=== PATIENT | male | born 1990 | race Caucasian/White ===

== ENCOUNTER 2016-11-08 18:23 | Inpatient (IN) | payer MEDICAID, OTHER ==
[2016-11-08 18:32] VITALS: BMI 23.7
--- NOTE | 2016-11-08 19:31 | ED PDOC ---
Arrival/HPI - General Chief Complaint: Psychiatric Evaluation Time Seen by Provider: 11/08/16 18:26 Historian: Patient - History of Present Illness Narrative History of Present Illness (Text): 11/08/16 19:34 A 26 year old male, whose past medical history includes schizophrenia, presents to the emergency department complaining of hearing voices and depressed. Patient also reports right ankle pain and foot pain earlier today after " jumping on it funny" Patient denies any other complaints at this time. 11/08/16 22:43 Symptom Onset: Sudden Symptom Course: Unchanged Activities at Onset: Rest Context: Home Past Medical History - Provider Review Nursing Documentation Reviewed: Yes - Infectious Disease Hx of Infectious Diseases: None - Cardiac Hx Cardiac Disorders: No - Pulmonary Hx Respiratory Disorders: No - Neurological Hx Neurological Disorder: No - HEENT Hx HEENT Disorder: No - Renal Hx Renal Disorder: No - Endocrine/Metabolic Hx Endocrine Disorders: No - Hematological/Oncological Hx Blood Disorders: No - Integumentary Hx Dermatological Disorder: No - Musculoskeletal/Rheumatological Hx Musculoskeletal Disorders: No - Gastrointestinal Hx Gastrointestinal Disorders: No - Genitourinary/Gynecological Hx Genitourinary Disorders: No - Psychiatric Hx Psychophysiologic Disorder: Yes Hx Schizophrenia: Yes Hx Substance Use: Yes (marijuana) - Anesthesia Hx Anesthesia: No Family/Social History - Physician Review Nursing Documentation Reviewed: Yes Family/Social History: No Known Family HX Smoking Status: Heavy Smoker > 10 Cigarettes Daily Hx Alcohol Use: Yes Frequency of alcohol use: Daily Hx Substance Use: Yes (marijuana) Allergies/Home Meds Allergies/Adverse Reactions: Allergies cinnamon. gilmer,banana Adverse Reaction (Uncoded 11/09/16 08:26) SWELLING Home Medications: Home Meds Medication Instructions Recorded Confirmed Unobtainable 10/18/15 11/09/16 Review of Systems - Physician Review All systems were reviewed & negative as marked: Yes - Review of Systems Musculoskeletal: Other (R ankle pain) Psychiatric: Depression, Other (hearing voices) Physical Exam Vital Signs Reviewed: Yes Vital Signs Temp Pulse Resp BP Pulse Ox 11/09/16 07:44 97.9 F 82 17 112/54 L 97 11/09/16 06:05 61 18 119/72 98 11/09/16 02:37 98.7 F 66 18 120/77 98 11/08/16 20:55 98.8 F 11/08/16 20:18 74 20 139/71 100 Blood Pressure: Normal Pulse: Regular Respiratory Rate: Normal Appearance: Positive for: Well-Appearing, Non-Toxic, Comfortable Pain Distress: None Mental Status: Positive for: Alert and Oriented X 3 - Systems Exam Head: Present: Atraumatic, Normocephalic Pupils: Present: PERRL Extroacular Muscles: Present: EOMI Conjunctiva: Present: Normal Mouth: Present: Moist Mucous Membranes Neck: Present: Normal Range of Motion Respiratory/Chest: Present: Clear to Auscultation, Good Air Exchange. No: Respiratory Distress, Accessory Muscle Use Cardiovascular: Present: Regular Rate and Rhythm, Normal S1, S2. No: Murmurs Abdomen: Present: Normal Bowel Sounds. No: Tenderness, Distention, Peritoneal Signs Back: Present: Normal Inspection Upper Extremity: Present: Normal Inspection. No: Cyanosis, Edema Lower Extremity: Present: Tenderness (mild R foot), Swelling (mild R foot). No : Edema Neurological: Present: GCS=15, CN II-XII Intact, Speech Normal Skin: Present: Warm, Dry, Normal Color. No: Rashes Psychiatric: Present: Alert, Oriented x 3, Normal Concentration, Depressed Mood , Other (hearing voices) Medical Decision Making ED Course and Treatment: 11/08/16 19:28 Impression: A 26 year old male, hearing voices and depressed. Plan: -- EKG -- chest xray -- Radiology ankle right, foot right -- labs -- Urinalysis -- Reassess and disposition Prior Visits: Notes and results from previous visits were reviewed. Patient last reported to the emergency department on 10/18/15 for evaluation of depression. Patient was cleared for psych evaluation. Patient was seen in ER by Irene and discharged. Progress Notes: EKG: Ordered, reviewed, and independently interpreted the EKG. Rate : 82 BPM Rhythm : NSR Interpretation : No ST/T wave changes 11/08/16 22:43 cxrneg as read by me. medically cleared. pes recommends screener 11/09/16 12:30 pt endrosed to night team. pending [facility] [place] [place] eval, and vrad reading of imaging. - Lab Interpretations Lab Results: 11/08/16 20:00 11/08/16 20:00 Lab Results 11/08/16 20:00: Alcohol, Quantitative < 10 11/08/16 20:00: Salicylates < 1 L, Acetaminophen < 10.0 L 11/08/16 20:00: Sodium 138, Potassium 4.0, Chloride 101, Carbon Dioxide 27, Anion Gap 14, BUN 14, Creatinine 1.0, Est GFR ( Amer) > 60, Est GFR (Non- Af Amer) > 60, Random Glucose 87, Calcium 9.6, Total Bilirubin 0.6, AST 28, ALT 35, Alkaline Phosphatase 66, Total Protein 8.0, Albumin 4.5, Globulin 3.5, Albumin/Globulin Ratio 1.3 11/08/16 20:00: WBC 8.9 D, RBC 5.02, Hgb 14.7, Hct 44.3, MCV 88.2, MCH 29.3, MCHC 33.2, RDW 12.9, Plt Count 182, MPV 11.2 H, Gran % 55.8, Lymph % (Auto) 35.7 H, [place] % (Auto) 8.0 H, Eos % (Auto) 0.2 L, Baso % (Auto) 0.3, Gran # 4.94 , Lymph # 3.2, [place] # 0.7 H, Eos # 0.0, Baso # 0.03 11/08/16 19:45: Urine Opiates Screen Negative, Urine Methadone Screen Negative, Ur Barbiturates Screen Negative, Ur Phencyclidine Scrn Negative, Ur Amphetamines Screen Negative, U Benzodiazepines Scrn Negative, U Oth Cocaine Metabols Negative, U Cannabinoids Screen Positive H 11/08/16 19:45: Urine Color Yellow, Urine Appearance Clear, Urine pH 6.0, Ur Specific [place] 1.025, Urine Protein Trace H, Urine Glucose (UA) Negative, Urine Ketones Negative, Urine Blood Trace-intact H, Urine Nitrate Negative, Urine Bilirubin Negative, Urine Urobilinogen 1.0 H, Ur Leukocyte Esterase Negative, Urine RBC 1 - 3, Urine WBC 0 - 2, Ur Epithelial Cells 0 - 2 I have reviewed the lab results: Yes - RAD Interpretation Radiology Orders: 11/08/16 18:31 CHEST PORTABLE [RAD] Stat ANKLE RIGHT 3 VIEWS ROUTINE [RAD] Stat FOOT RIGHT 3 VIEWS ROUTINE [RAD] Stat - EKG Interpretation Interpreted by ED Physician: Yes Type: 12 lead EKG - Medication Orders Current Medication Orders: Benztropine Mesylate (Cogentin) 0.5 mg PO [facility] Nicotine (Nicoderm Cq) 1 patch TD DAILY CHELY Risperidone (Risperdal Tab) 1 mg PO [facility] CHELY PRN Reason: Protocol - Scribe Statement The provider has reviewed the documentation as recorded by the Jerilynibsantiago Oleary Provider Scribe Attestation: All medical record entries made by the Scribe were at my direction and personally dictated by me. I have reviewed the chart and agree that the record accurately reflects my personal performance of the history, physical exam, medical decision making, and the department course for this patient. I have also personally directed, reviewed, and agree with the discharge instructions and disposition. Disposition/Present on Arrival - Present on Arrival Any Indicators Present on Arrival: No History of DVT/PE: No History of Uncontrolled Diabetes: No Urinary Catheter: No History of Decub. Ulcer: No History Surgical Site Infection Following: None - Disposition Have Diagnosis and Disposition been Completed?: Yes Diagnosis: Schizophrenia, Foot injury Disposition: HOSPITALIZED Disposition Time: 11:00 Condition: STABLE
[2016-11-08 20:17] LABS: URINE APPEARANCE CLEAR (CLEAR); URINE BILIRUBIN NEGATIVE (NEGATIVE); URINE BLOOD TRACE-INTACT (NEGATIVE); URINE COLOR YELLOW (YELLOW); URINE GLUCOSE (UA) NEGATIVE (NEGATIVE); URINE KETONE NEGATIVE (NEGATIVE); URINE LEUKOCYTE ESTERASE NEGATIVE Leu/uL (NEGATIVE); URINE PROTEIN TRACE mg/dL (<30 mg/dL)
[2016-11-08 20:23] LABS: ADD MANUAL DIFF? NO
[2016-11-08 20:33] LABS: URINE EPITHELIAL CELLS 0 - 2 /hpf (0-5); URINE WBC 0 - 2 /hpf (0-6)
[2016-11-08 20:34] LABS: BASO # 0.03 K/mm3 (0.0-2.0); BASO % 0.3 % (0.0-3.0); EOS % 0.2 % (1.5-5.0); GRAN # 4.94 (1.4-6.5); GRAN % 55.8 % (50.0-68.0); HEMATOCRIT 44.3 % (42.0-52.0); LYMPH # 3.2 (1.2-3.4); LYMPH % 35.7 % (22.0-35.0); MEAN CELL VOLUME 88.2 fL (80.0-105.0); MEAN CORPUSCULAR HEMOGLOBIN 29.3 pg (25.0-35.0); MEAN CORPUSCULAR HGB CONC 33.2 g/dl (31.0-37.0); MEAN PLATELET VOLUME 11.2 fl (7.0-11.0); MONO # 0.7 (0.1-0.6); PLATELET COUNT 182 10^3/uL (120.0-450.0); RED CELL DISTRIBUTION WIDTH 12.9 % (11.5-14.5); WHITE BLOOD COUNT 8.9 10^3/ul (4.5-11.0)
[2016-11-08 20:48] LABS: ALB/GLOB RATIO 1.3 (1.1-1.8); ALKALINE PHOSPHATASE 66 U/L (38-133); ALT/SGPT 35 U/L (7-56); AST/SGOT 28 U/L (15-59); BILIRUBIN,TOTAL 0.6 mg/dL (0.2-1.3); BLOOD UREA NITROGEN 14 mg/dL (7-21); CALCIUM 9.6 mg/dL (8.4-10.5); CARBON DIOXIDE 27 mmol/L (21-33); CHLORIDE 101 mmol/L (98-107); GFR AFRICAN-AMERICAN > 60; GLUCOSE,RANDOM 87 mg/dL (70-110); SODIUM 138 mmol/L (132-148)
--- NOTE | 2016-11-08 23:59 | RAD ---
EXAM: XR Right Foot Complete, 3 or More Views CLINICAL HISTORY: 26 years old, male; Injury or trauma; Fall; Initial encounter; Blunt trauma; Foot; Right TECHNIQUE: Frontal, lateral and oblique views of the right foot. COMPARISON: No relevant prior studies available. FINDINGS: Bones/joints: Small ossicle or fracture fragment along distal tibia. No acute fracture. Soft tissues: Unremarkable. IMPRESSION: 1. Small ossicle or fracture fragment along distal tibia. Recommend dedicated radiographs of ankle. 2. Incidental/non-acute findings are described above.
[2016-11-09 07:45] VITALS: O2SAT 97
--- NOTE | 2016-11-09 09:15 | RAD ---
HISTORY: pes COMPARISON: No prior. FINDINGS: LUNGS: No active pulmonary disease. PLEURA: No significant pleural effusion identified, no pneumothorax apparent. CARDIOVASCULAR: Normal. OSSEOUS STRUCTURES: No significant abnormalities. VISUALIZED UPPER ABDOMEN: Normal. OTHER FINDINGS: None. IMPRESSION: No active disease.
--- NOTE | 2016-11-09 09:18 | RAD ---
PROCEDURE: Right Ankle Radiographs. HISTORY: fall COMPARISON: None FINDINGS: BONES: There is a broad-based exostosis arising from the posterior cortex of the distal tibia. This measures 21 mm in diameter at its base and 8 mm in height. There is a smaller exostosis on the lateral aspect of the distal tibia just above the ankle. This measures 16 x 4 mm JOINTS: Normal. No osteoarthritis. Ankle mortise maintained. Talar dome intact SOFT TISSUES: Normal. OTHER FINDINGS: None. IMPRESSION: The 2 separate exostoses of the distal tibia
--- NOTE | 2016-11-09 10:41 | CARD ---
APPROVED REPORT EKG Measurement Heart [id number] <Conclusion> Normal sinus rhythm PRWP V 1 - 4, possible lead placement No change
--- NOTE | 2016-11-09 14:52 | PCM.PSYCH ---
Initial Psychiatric Evaluation - Initial Psychiatric Evaluation Type of Admission: Voluntary Legal Status: Capacity (patient has capacity to sign consent for treatment) Chief Complaint (in patient's own words): ""it is a secret, I am at the [employer],I am on due to for the [employer] right now"" Patient's Reaction to Hospitalization: disorganized thoughts, disorganized behavior History of Present Illness and Precipitating Events: shortly patient is 26 years old -[place] male, long and debilitating history of schizophrenia spectrum disorder, more than 15 hospitalizations into the psychiatric inpatient unit, history of noncompliance with the medications, patient currently under a [facility] outpatient program care, patient was admitted for evaluation of disorganized and psychotic behavior, patient was noncompliant with the medications, needs further evaluation and stabilization, medications what resumption. Patient was seen at the treatment team meeting, patient presented to have acceptable personal hygiene, patient presented to be completely disorganized, thought process was tangential and circumstantial, at times patient answers weren't not related to the question being asked. Fear ADLs. For example patient said that "my mother has allergic reaction towards me, she came back from work, I wanted to talk to her, but she has allergy on me", patient said that his mother should be appreciated towards him because "I was the one who provided job for her", patient said that also he works, but doesn't want to disclose information about his job position. When patient was asked the reason why he doesn't want to talk about this patient said "it is a secret, I am at the [employer],I am on due to for the [employer] right now". pt also was found to be grandiose, said that "my mother wants to destroy my foundation" , when was asked what does he mean by that, pt said "me and my brother are very good people we have friends, she does not have friends, my father had allergic reaction towards my mother, now he is not at the picture, I smoke two packs a day it keeps me mellow, I wanted to drive [employer], I am a giving person...." pt was going and going. As per PES pt was given cup iwth the water in ED, pt poured the water and ice on his head and leaving the cup on his head saying that he was wearing a birthday hat and it was his birthday. pt said that he was on invega before and now he wants to be on injectable form of medication. Unfortunately intake is nonformulary in this hospital, we'll resume Risperdal. Patient was in agreement with that plan. Patient reported that he feels upset, denied any thoughts of killing himself. As per previous history patient has history of suicidal attempts, patient reported he had 4 suicidal attempts, when was asked when was the last one patient said "at age of 27" when this insurance underwriter asked patient how does physical possible because patient is 26 years old patient did not have any explanation. Medical history: Patient reported being healthy patient denied using drugs denied drinking alcohol Family history: Unknown Patient's pharmacy was called Risperdal 2 mg by mouth at the nighttime filled in June [address] [place] westbrook [facility]. Vital Signs Temp Pulse Resp BP Pulse Ox 11/09/16 07:44 97.9 F 82 17 112/54 L 97 11/09/16 06:05 61 18 119/72 98 11/09/16 02:37 98.7 F 66 18 120/77 98 11/08/16 20:55 98.8 F 11/08/16 20:18 74 20 139/71 100 11/08/16 20:00 11/08/16 20:00 Lab Results 11/08/16 20:00: Alcohol, Quantitative < 10 11/08/16 20:00: Salicylates < 1 L, Acetaminophen < 10.0 L 11/08/16 20:00: Sodium 138, Potassium 4.0, Chloride 101, Carbon Dioxide 27, Anion Gap 14, BUN 14, Creatinine 1.0, Est GFR ( Amer) > 60, Est GFR (Non- Af Amer) > 60, Random Glucose 87, Calcium 9.6, Total Bilirubin 0.6, AST 28, ALT 35, Alkaline Phosphatase 66, Total Protein 8.0, Albumin 4.5, Globulin 3.5, Albumin/Globulin Ratio 1.3 11/08/16 20:00: WBC 8.9 D, RBC 5.02, Hgb 14.7, Hct 44.3, MCV 88.2, MCH 29.3, MCHC 33.2, RDW 12.9, Plt Count 182, MPV 11.2 H, Gran % 55.8, Lymph % (Auto) 35.7 H, [place] % (Auto) 8.0 H, Eos % (Auto) 0.2 L, Baso % (Auto) 0.3, Gran # 4.94 , Lymph # 3.2, [place] # 0.7 H, Eos # 0.0, Baso # 0.03 11/08/16 19:45: Urine Opiates Screen Negative, Urine Methadone Screen Negative, Ur Barbiturates Screen Negative, Ur Phencyclidine Scrn Negative, Ur Amphetamines Screen Negative, U Benzodiazepines Scrn Negative, U Oth Cocaine Metabols Negative, U Cannabinoids Screen Positive H 11/08/16 19:45: Urine Color Yellow, Urine Appearance Clear, Urine pH 6.0, Ur Specific [place] 1.025, Urine Protein Trace H, Urine Glucose (UA) Negative, Urine Ketones Negative, Urine Blood Trace-intact H, Urine Nitrate Negative, Urine Bilirubin Negative, Urine Urobilinogen 1.0 H, Ur Leukocyte Esterase Negative, Urine RBC 1 - 3, Urine WBC 0 - 2, Ur Epithelial Cells 0 - 2 Current Medications: patient was noncompliant with the medications Past Psychiatric History - Past Psychiatric History Previous Treatment History: Inpatient Prior Professional Help: see HPI Prior Psychiatric Treatment: see HPI At what hospital: see HPI Duration: see HPI Nature of Treatment: see HPI Explanation of prior treatment: see HPI History of Abuse: denied History of ETOH/Drug Use: see HPI History of Family Illness: see HPI Pertinent Medical Hx (Current Medical&Sleep Prob, Allergies): Allergies Allergy/AdvReac Type Severity Reaction Status Date / Time cinnamon. gilmer,banana AdvReac SWELLING Uncoded 11/09/16 08:26 Unobtainable 10/18/15 Review of Systems - Review of Systems Systems not reviewed;Unavailable: Acuity of Condition - EENT Eyes: As Per HPI Ears: As Per HPI Nose/Mouth/Throat: As Per HPI - Cardiovascular Cardiovascular: As Per HPI - Respiratory Respiratory: As Per HPI - Gastrointestinal Gastrointestinal: As Per HPI - Genitourinary Genitourinary: As Per HPI - Reproductive: Male Reproductive:Male: As Per HPI - Musculoskeletal Musculoskeletal: As Par HPI - Integumentary Integumentary: As Per HPI - Neurological Neurological: As Per HPI - Psychiatric Psychiatric: As Per HPI - Endocrine Endocrine: As Per HPI - Hematologic/Lymphatic Hematologic: As Per HPI Mental Status Examination - Personal Presentation Personal Presentation: Looks stated age - Affect Affect: Flat - Motor Activity Motor Activity: Calm - Reliability in Providing Information Reliability in Providing Information: Poor, due to alteration in thoughts, Poor , due to cognitve impairment - Speech Speech: Disorganized, Irrelevant, Tangential, Incoherent - Mood Mood: Neutral - Formal Thought Process Formal Thought Process: Hallucinations, Delusions, Paranoia, Loosening of associations, Flight of ideas, Circumstantial, Perservation - Hallucinations/Delusions Hallucinations: Auditory Delusions: Persecution - Obsessions/Compulsions Obsessions: None Compulsions: None - Cognitive Functions Orientation: Person, Place, Situation, Time Sensorium: Alert Attention/Concentration: Easily distracted Abstract Thinking: Comfort Estimate of Intelligence: Below average Judgement: Intact, as evidence by: Insight regarding need for hospitalization - Risk Risk: Self-mutilation, Diminished functioning - Strength & Assets Inventory Strength & Assets Inventory: Family support, Cooperative - Limitations Limitations: Other (chronic mental illness, noncompliance with the medications) DSM 5 DX - DSM 5 DSM 5 Diagnosis: schizophrenia, paranoid type - Recommended/Plan of Treatment Treatment Recommendations and Plan of Treatment: milieu, structure, supportive therapy Risperdal will be resumed 1 mg at the morning time 1 mg at the nighttime for psychotic symptoms and most stabilization Cogentin 0.5 mg twice a day for EPS symptoms Risperdal Consta Will be considered When necessary medications will be given collateral information will be obtained medical social consultant evaluation Medical team evaluation We'll monitor closely when necessary medications for insomnia Projected ELOS: 7 days Prognosis: guarded Discharge Plan and Discharge Criteria: Pt will be not depressed or manic, will be more hopeful, will be not psychotic or anxious, will be not having thoughts of harming self or others, will be tolerating medications well, will not have major side effects, will be able to function, will not pose threat to self or others. - Smoking Cessation Smoking Cessation Initiated: Yes
[2016-11-09 15:22] VITALS: RESP 20
--- NOTE | 2016-11-09 21:14 | CP.PCM.CON ---
History of Present Illness - History of Present Illness History of Present Illness: This is a 26yo M w/ a PMHx of schizophrenia, paranoid type who is being admitted to psychiatry and this note is being completed on behalf of Dr. Lawrence for a medical consultation placed at 10:30am on 11/09/2016. This patient normally takes risperidone and invega for his schizophrenia, which he admits to not taking for the past few months. He admits to smoking marijuana frequently, and no other drugs. He has no other complaints. He denies fevers/ chills, RODRÍGUEZ, CP, SOB, abdominal pain, N/V/D, dysuria/freq/urg, or lower extremity pain/swelling, homocidal or suicidal ideation. Admits to hearing voices that are persecuting him. Allergies: cinnamon, gilmer, banana Surgeries: Denies FamHx: denies Meds: Risperidone, Invega Social: lives at home, unemployed, smokes marijuana, denies EtOH or other illicit drug use Past Patient History - Infectious Disease Hx of Infectious Diseases: None - Past Social History Smoking Status: Heavy Smoker > 10 Cigarettes Daily - CARDIAC Hx Cardiac Disorders: No - PULMONARY Hx Respiratory Disorders: No - NEUROLOGICAL Hx Neurological Disorder: No - HEENT Hx HEENT Problems: No - RENAL Hx Chronic Kidney Disease: No - ENDOCRINE/METABOLIC Hx Endocrine Disorders: No - HEMATOLOGICAL/ONCOLOGICAL Hx Blood Disorders: No - INTEGUMENTARY Hx Dermatological Problems: No - MUSCULOSKELETAL/RHEUMATOLOGICAL Hx Musculoskeletal Disorders: No - GASTROINTESTINAL Hx Gastrointestinal Disorders: No - GENITOURINARY/GYNECOLOGICAL Hx Genitourinary Disorders: No - PSYCHIATRIC Hx Psychophysiologic Disorder: Yes Hx Schizophrenia: Yes Hx Substance Use: Yes (marijuana) - SURGICAL HISTORY Hx Surgeries: No - ANESTHESIA Hx Anesthesia: No Meds Allergies/Adverse Reactions: Allergies Allergy/AdvReac Type Severity Reaction Status Date / Time cinnamon. gilmer,banana AdvReac SWELLING Uncoded 11/09/16 08:26 - Medications Medications: Current Medications Benztropine Mesylate (Cogentin) 0.5 mg PO [facility]HS CHELY Last Admin: 11/09/16 21:10 Dose: 0.5 mg Nicotine (Nicoderm Cq) 1 patch TD DAILY CHELY Last Admin: 11/09/16 16:04 Dose: 1 patch Risperidone (Risperdal Tab) 1 mg PO [facility]HS CHELY PRN Reason: Protocol Last Admin: 11/09/16 21:10 Dose: 1 mg Trazodone HCl (Desyrel) 50 mg PO HS CHELY Last Admin: 11/09/16 21:10 Dose: 50 mg Ziprasidone (Geodon Inj) 20 mg IM Q6H PRN; Protocol PRN Reason: severe agitation Physical Exam - Constitutional Appears: Well, Non-toxic - Head Exam Head Exam: ATRAUMATIC, NORMAL INSPECTION - Eye Exam Eye Exam: EOMI, Normal appearance Pupil Exam: PERRL - ENT Exam ENT Exam: Mucous Membranes Moist - Neck Exam Neck exam: Positive for: Full Rom. Negative for: Lymphadenopathy, Tenderness - Respiratory Exam Respiratory Exam: Clear to Auscultation Bilateral, NORMAL BREATHING PATTERN. absent: Rales, Rhonchi, Wheezes - Cardiovascular Exam Cardiovascular Exam: REGULAR RHYTHM, +S1, +S2 - GI/Abdominal Exam GI & Abdominal Exam: Normal Bowel Sounds, Soft. absent: Tenderness - Rectal Exam Rectal Exam: Deferred - Extremities Exam Extremities exam: Positive for: full ROM, normal inspection. Negative for: calf tenderness, pedal edema - Back Exam Back exam: NORMAL INSPECTION. absent: CVA tenderness (L), CVA tenderness (R) - Neurological Exam Neurological exam: Alert, Oriented x3 (thought process is paranoid and psychotic bizarre but pleasant ) - Psychiatric Exam Psychiatric exam: Normal Affect, Normal Mood - Skin Skin Exam: Warm Results - Vital Signs Recent Vital Signs: Last Vital Signs Temp 97.9 F 11/09/16 07:44 Pulse 66 11/09/16 16:18 Resp 20 11/09/16 08:20 BP 113/66 11/09/16 16:18 Pulse Ox 97 11/09/16 07:44 - Labs Result Diagrams: 11/08/16 20:00 11/08/16 20:00 Assessment & Plan - Assessment and Plan (Free Text) Assessment: 26yo M w/ PMHx of Shizophrenia, Paranoid Type Shchizophrenia -c/w current psychiatric management Health Maintanence -f/u Lipid, TSH/Free T4, Vit D, Hemoglobin A1c RPR, HIV, Iron/TIBC, Hepatitis Panel as he has not had a health screening in many years Case discussed with Dr. Amaris Titus Case will be followed by day team
[2016-11-10 09:15] LABS: IRON 160 ug/dL (45-180)
[2016-11-10 09:24] LABS: FREE T4 1.23 ng/dL (0.78-2.19)
[2016-11-10 09:38] LABS: THYROID STIMULATING HORMONE 0.98 mIU/mL (0.46-4.68)
--- NOTE | 2016-11-10 14:11 | PCM.PYCHPN ---
Psychiatric Progress Note - Psychiatric Progress Note Patient seen today, length of contact: 30 minutes Patient Chief Complaint: ""I'm doing just fine" Problems Identified/Issues Discussed: Suicide/ homicide prevention, past psychiatric h/o, current psychiatric symptoms , medical problems, risk/benefits and alternatives of medications, medications compliance, coping strategies, substance abuse h/o, relapse prevention, importance of follow up with psychiatrist and therapist, discharge plan. Medical Problems: patient reported being healthy, patient was seen by medical team, consultation appreciated Diagnostic Results: 11/08/16 20:00 11/08/16 20:00 Lab Results 11/10/16 08:30: Iron 160, TIBC 314, % Saturation 51 11/10/16 08:30: Free T4 1.23, TSH 3rd Generation 0.98 11/10/16 08:30: Ferritin Pending, Triglycerides 101, Cholesterol 157, LDL Cholesterol Direct 98, HDL Cholesterol 39, Vitamin B12 Pending, Folate Pending 11/08/16 20:00: Alcohol, Quantitative < 10 11/08/16 20:00: Salicylates < 1 L, Acetaminophen < 10.0 L 11/08/16 20:00: Sodium 138, Potassium 4.0, Chloride 101, Carbon Dioxide 27, Anion Gap 14, BUN 14, Creatinine 1.0, Est GFR ( Amer) > 60, Est GFR (Non- Af Amer) > 60, Random Glucose 87, Calcium 9.6, Total Bilirubin 0.6, AST 28, ALT 35, Alkaline Phosphatase 66, Total Protein 8.0, Albumin 4.5, Globulin 3.5, Albumin/Globulin Ratio 1.3 11/08/16 20:00: WBC 8.9 D, RBC 5.02, Hgb 14.7, Hct 44.3, MCV 88.2, MCH 29.3, MCHC 33.2, RDW 12.9, Plt Count 182, MPV 11.2 H, Gran % 55.8, Lymph % (Auto) 35.7 H, [place] % (Auto) 8.0 H, Eos % (Auto) 0.2 L, Baso % (Auto) 0.3, Gran # 4.94 , Lymph # 3.2, [place] # 0.7 H, Eos # 0.0, Baso # 0.03 11/08/16 19:45: Urine Opiates Screen Negative, Urine Methadone Screen Negative, Ur Barbiturates Screen Negative, Ur Phencyclidine Scrn Negative, Ur Amphetamines Screen Negative, U Benzodiazepines Scrn Negative, U Oth Cocaine Metabols Negative, U Cannabinoids Screen Positive H 11/08/16 19:45: Urine Color Yellow, Urine Appearance Clear, Urine pH 6.0, Ur Specific [place] 1.025, Urine Protein Trace H, Urine Glucose (UA) Negative, Urine Ketones Negative, Urine Blood Trace-intact H, Urine Nitrate Negative, Urine Bilirubin Negative, Urine Urobilinogen 1.0 H, Ur Leukocyte Esterase Negative, Urine RBC 1 - 3, Urine WBC 0 - 2, Ur Epithelial Cells 0 - 2 Vital Signs Temp Pulse Pulse Resp BP Pulse Ox 11/10/16 07:33 97.5 F L 86 20 135/80 11/09/16 16:18 66 113/66 11/09/16 08:20 62 20 11/09/16 07:44 97.9 F 82 17 112/54 L 97 11/09/16 06:05 61 18 119/72 98 11/09/16 02:37 98.7 F 66 18 120/77 98 11/08/16 20:55 98.8 F 11/08/16 20:18 74 20 139/71 100 DSM 5 Symptoms Update: shortly patient is 26 years old -Hungarian male, long and debilitating history of schizophrenia spectrum disorder, more than 15 hospitalizations into the psychiatric inpatient unit, history of noncompliance with the medications, patient currently under a [facility] outpatient program care, patient was admitted for evaluation of disorganized and psychotic behavior, patient was noncompliant with the medications, needs further evaluation and stabilization, medications what resumption. Patient was seen at the TV area today, patient presented to have acceptable personal hygiene, patient presented to be disorganized, thought process was tangential and circumstantial, at times patient answers weren't not related to the question being asked. patient was not that talkative today, was giving yes or no answers, presented to have thought blocking, poverty of thoughts, paranoia, disorganized thoughts and behavior. As per nursing report patient is compliant with her medications, no side effects observed or reported, aims 0, no EPS. Impression: Schizophrenia paranoid type Cannabis abuse Medication Change: Yes (resumed, increased yesterday) Medical Record Reviewed: Yes Consults ordered or reviewed: medical consult appreciated Mental Status Examination - Cognitive Function Orientation: Person, Place, Situation, Time Memory: Intact Attention: Poor Concentration: Poor Association: Loose Fund of Knowledge: Poor - Mood Mood: Neutral - Affect Affect: Flat - Formal Thought Process Formal Thought Process: Hallucinations, Delusions, Paranoia, Loosening of associations, Flight of ideas, Circumstantial, Perservation - Suicidal Ideation Suicidal Ideation: No - Homicidal Ideation Homicidal Ideation: No Goal/Treatment Plan - Goal/Treatment Plan Need for Continued Stay: Remain at risks for inpatient hospitalization, Severe depression anxiety, Discharge may exacerbated symptoms, Severe functional impairment Progress Toward Problem(s) and Goals/Treatment Plan: milieu, structure, supportive therapy Risperdal 1 mg at the morning time 1 mg at the nighttime for psychotic symptoms and most stabilization Cogentin 0.5 mg twice a day for EPS symptoms Risperdal Consta Will be considered When necessary medications will be given collateral information will be obtained social media designer evaluation Medical team evaluation We'll monitor closely when necessary medications for insomnia Estimated Date of D/C: 11/16/16 (we'll monitor closely)
[2016-11-10 19:19] LABS: FOLATE 12.7 ng/mL
--- NOTE | 2016-11-11 12:34 | PCM.PYCHPN ---
Psychiatric Progress Note - Psychiatric Progress Note Patient seen today, length of contact: 30 minutes Patient Chief Complaint: "I needed to be discharged, I have a secret mission" Problems Identified/Issues Discussed: Suicide/ homicide prevention, past psychiatric h/o, current psychiatric symptoms , medical problems, risk/benefits and alternatives of medications, medications compliance, coping strategies, substance abuse h/o, relapse prevention, importance of follow up with psychiatrist and therapist, discharge plan. Medical Problems: patient reported being healthy, patient was seen by medical team, consultation appreciated Diagnostic Results: 11/08/16 20:00 11/08/16 20:00 Lab Results 11/10/16 08:30: Iron 160, TIBC 314, % Saturation 51 11/10/16 08:30: Free T4 1.23, TSH 3rd Generation 0.98 11/10/16 08:30: Ferritin Pending, Triglycerides 101, Cholesterol 157, LDL Cholesterol Direct 98, HDL Cholesterol 39, Vitamin B12 Pending, Folate Pending 11/08/16 20:00: Alcohol, Quantitative < 10 11/08/16 20:00: Salicylates < 1 L, Acetaminophen < 10.0 L 11/08/16 20:00: Sodium 138, Potassium 4.0, Chloride 101, Carbon Dioxide 27, Anion Gap 14, BUN 14, Creatinine 1.0, Est GFR ( Amer) > 60, Est GFR (Non- Af Amer) > 60, Random Glucose 87, Calcium 9.6, Total Bilirubin 0.6, AST 28, ALT 35, Alkaline Phosphatase 66, Total Protein 8.0, Albumin 4.5, Globulin 3.5, Albumin/Globulin Ratio 1.3 11/08/16 20:00: WBC 8.9 D, RBC 5.02, Hgb 14.7, Hct 44.3, MCV 88.2, MCH 29.3, MCHC 33.2, RDW 12.9, Plt Count 182, MPV 11.2 H, Gran % 55.8, Lymph % (Auto) 35.7 H, [place] % (Auto) 8.0 H, Eos % (Auto) 0.2 L, Baso % (Auto) 0.3, Gran # 4.94 , Lymph # 3.2, [place] # 0.7 H, Eos # 0.0, Baso # 0.03 11/08/16 19:45: Urine Opiates Screen Negative, Urine Methadone Screen Negative, Ur Barbiturates Screen Negative, Ur Phencyclidine Scrn Negative, Ur Amphetamines Screen Negative, U Benzodiazepines Scrn Negative, U Oth Cocaine Metabols Negative, U Cannabinoids Screen Positive H 11/08/16 19:45: Urine Color Yellow, Urine Appearance Clear, Urine pH 6.0, Ur Specific [place] 1.025, Urine Protein Trace H, Urine Glucose (UA) Negative, Urine Ketones Negative, Urine Blood Trace-intact H, Urine Nitrate Negative, Urine Bilirubin Negative, Urine Urobilinogen 1.0 H, Ur Leukocyte Esterase Negative, Urine RBC 1 - 3, Urine WBC 0 - 2, Ur Epithelial Cells 0 - 2 Vital Signs Temp Pulse Pulse Resp BP Pulse Ox 11/10/16 07:33 97.5 F L 86 20 135/80 11/09/16 16:18 66 113/66 11/09/16 08:20 62 20 11/09/16 07:44 97.9 F 82 17 112/54 L 97 11/09/16 06:05 61 18 119/72 98 11/09/16 02:37 98.7 F 66 18 120/77 98 11/08/16 20:55 98.8 F 11/08/16 20:18 74 20 139/71 100 Temp Pulse Resp BP Pulse Ox 97.5 F L 86 20 131/80 97 11/11/16 06:30 11/11/16 06:30 11/11/16 06:30 11/11/16 06:30 11/09/16 07:44 DSM 5 Symptoms Update: shortly patient is 26 years old -Sammar[place] male, long and debilitating history of schizophrenia spectrum disorder, more than 15 hospitalizations into the psychiatric inpatient unit, history of noncompliance with the medications, patient currently under a [facility] outpatient program care, patient was admitted for evaluation of disorganized and psychotic behavior, patient was noncompliant with the medications, needs further evaluation and stabilization, medications what resumption. Patient was seen next to the nursing station, patient presented to have acceptable personal hygiene, patient presented to be disorganized, thought process was tangential and circumstantial, at times patient answers weren't not related to the question being asked. pt was writing some diaries: "documented proof, got being kissed by men. Creates the unbelievable disturbance in the female ovary giving off and not so last sent order or what religious for black man? Is one of your daughters being bad and nasty refresher course on through to never live a life, at the video named BONITA and man can start. Since there were easily video being documented. With sound on and fell alert device can cells all frequent knee from other device to make it known. This one famine this no and your [place] your don't fight the side of God/daughter BBBenny?" pt is psychotic, asked to be discharged because he has a "secret mission", pt was educated about 48hr notice. pt needed to be medicated with IM Geodon. As per nursing report patient is compliant with her medications, no side effects observed or reported, aims 0, no EPS. Impression: Schizophrenia paranoid type Cannabis abuse Medication Change: Yes (Risperdal increased today) Medical Record Reviewed: Yes Consults ordered or reviewed: medical consult appreciated Mental Status Examination - Cognitive Function Orientation: Person, Place, Situation, Time Memory: Intact Attention: Poor Concentration: Poor Association: Loose Fund of Knowledge: Poor - Mood Mood: Depressed, Anxious - Affect Affect: Flat - Formal Thought Process Formal Thought Process: Hallucinations, Delusions, Paranoia, Loosening of associations, Flight of ideas, Circumstantial, Perservation - Suicidal Ideation Suicidal Ideation: No - Homicidal Ideation Homicidal Ideation: No Goal/Treatment Plan - Goal/Treatment Plan Need for Continued Stay: Remain at risks for inpatient hospitalization, Severe depression anxiety, Discharge may exacerbated symptoms, Severe functional impairment Progress Toward Problem(s) and Goals/Treatment Plan: milieu, structure, supportive therapy Risperdal 1,5 mg at the morning time 2 mg at the nighttime for psychotic symptoms and most stabilization Cogentin 0.5 mg twice a day for EPS symptoms Risperdal Consta Will be considered When necessary medications will be given collateral information will be obtained neonatal social worker evaluation Medical team evaluation We'll monitor closely when necessary medications for insomnia Estimated Date of D/C: 11/16/16 (we'll monitor closely)
--- NOTE | 2016-11-12 16:18 | PCM.PYCHPN ---
Psychiatric Progress Note - Psychiatric Progress Note Patient seen today, length of contact: 30 minutes Patient Chief Complaint: "I needed to be discharged, I have a secret mission" Problems Identified/Issues Discussed: Suicide/ homicide prevention, past psychiatric h/o, current psychiatric symptoms , medical problems, risk/benefits and alternatives of medications, medications compliance, coping strategies, substance abuse h/o, relapse prevention, importance of follow up with psychiatrist and therapist, discharge plan. Medical Problems: patient reported being healthy, patient was seen by medical team, consultation appreciated Diagnostic Results: 11/08/16 20:00 11/08/16 20:00 Lab Results 11/10/16 08:30: Iron 160, TIBC 314, % Saturation 51 11/10/16 08:30: Free T4 1.23, TSH 3rd Generation 0.98 11/10/16 08:30: Ferritin Pending, Triglycerides 101, Cholesterol 157, LDL Cholesterol Direct 98, HDL Cholesterol 39, Vitamin B12 Pending, Folate Pending 11/08/16 20:00: Alcohol, Quantitative < 10 11/08/16 20:00: Salicylates < 1 L, Acetaminophen < 10.0 L 11/08/16 20:00: Sodium 138, Potassium 4.0, Chloride 101, Carbon Dioxide 27, Anion Gap 14, BUN 14, Creatinine 1.0, Est GFR ( Amer) > 60, Est GFR (Non- Af Amer) > 60, Random Glucose 87, Calcium 9.6, Total Bilirubin 0.6, AST 28, ALT 35, Alkaline Phosphatase 66, Total Protein 8.0, Albumin 4.5, Globulin 3.5, Albumin/Globulin Ratio 1.3 11/08/16 20:00: WBC 8.9 D, RBC 5.02, Hgb 14.7, Hct 44.3, MCV 88.2, MCH 29.3, MCHC 33.2, RDW 12.9, Plt Count 182, MPV 11.2 H, Gran % 55.8, Lymph % (Auto) 35.7 H, [place] % (Auto) 8.0 H, Eos % (Auto) 0.2 L, Baso % (Auto) 0.3, Gran # 4.94 , Lymph # 3.2, [place] # 0.7 H, Eos # 0.0, Baso # 0.03 11/08/16 19:45: Urine Opiates Screen Negative, Urine Methadone Screen Negative, Ur Barbiturates Screen Negative, Ur Phencyclidine Scrn Negative, Ur Amphetamines Screen Negative, U Benzodiazepines Scrn Negative, U Oth Cocaine Metabols Negative, U Cannabinoids Screen Positive H 11/08/16 19:45: Urine Color Yellow, Urine Appearance Clear, Urine pH 6.0, Ur Specific [place] 1.025, Urine Protein Trace H, Urine Glucose (UA) Negative, Urine Ketones Negative, Urine Blood Trace-intact H, Urine Nitrate Negative, Urine Bilirubin Negative, Urine Urobilinogen 1.0 H, Ur Leukocyte Esterase Negative, Urine RBC 1 - 3, Urine WBC 0 - 2, Ur Epithelial Cells 0 - 2 Vital Signs Temp Pulse Pulse Resp BP Pulse Ox 11/10/16 07:33 97.5 F L 86 20 135/80 11/09/16 16:18 66 113/66 11/09/16 08:20 62 20 11/09/16 07:44 97.9 F 82 17 112/54 L 97 11/09/16 06:05 61 18 119/72 98 11/09/16 02:37 98.7 F 66 18 120/77 98 11/08/16 20:55 98.8 F 11/08/16 20:18 74 20 139/71 100 Temp Pulse Resp BP Pulse Ox 97.5 F L 86 20 131/80 97 11/11/16 06:30 11/11/16 06:30 11/11/16 06:30 11/11/16 06:30 11/09/16 07:44 DSM 5 Symptoms Update: shortly patient is 26 years old -[place] male, long and debilitating history of schizophrenia spectrum disorder, more than 15 hospitalizations into the psychiatric inpatient unit, history of noncompliance with the medications, patient currently under a [facility] outpatient program care, patient was admitted for evaluation of disorganized and psychotic behavior, patient was noncompliant with the medications, needs further evaluation and stabilization, medications what resumption. Patient was seen next to the nursing station, pt still disorganized, paranoid, has impression that he is on secret mission from government. pt is grandiose, needs to be on mood stabilizer. over th weekend pt wrote the following letter: "documented proof, got being kissed by men. Creates the unbelievable disturbance in the female ovary giving off and not so last sent order or what gnosticist for black man? Is one of your daughters being bad and nasty refresher course on through to never live a life, at the video named BONITA and man can start. Since there were easily video being documented. With sound on and fell alert device can cells all frequent knee from other device to make it known. This one famine this no and your [place] your don't fight the side of God/ daughter BBBenny?" . As per nursing report patient is compliant with her medications, no side effects observed or reported, aims 0, no EPS. Impression: Schizophrenia paranoid type Cannabis abuse Medication Change: Yes (depakote started, irsperdal increased) Medical Record Reviewed: Yes Consults ordered or reviewed: medical consult appreciated Mental Status Examination - Cognitive Function Orientation: Person, Place, Situation, Time Memory: Intact Attention: Poor Concentration: Poor Association: Loose Fund of Knowledge: Poor - Mood Mood: Depressed, Anxious - Affect Affect: Flat - Formal Thought Process Formal Thought Process: Hallucinations, Delusions, Paranoia, Loosening of associations, Flight of ideas, Circumstantial, Perservation - Suicidal Ideation Suicidal Ideation: No - Homicidal Ideation Homicidal Ideation: No Goal/Treatment Plan - Goal/Treatment Plan Need for Continued Stay: Remain at risks for inpatient hospitalization, Severe depression anxiety, Discharge may exacerbated symptoms, Severe functional impairment Progress Toward Problem(s) and Goals/Treatment Plan: milieu, structure, supportive therapy Risperdal 2 mg at the morning time 2 mg at the nighttime for psychotic symptoms and most stabilization Cogentin 0.5 mg twice a day for EPS symptoms depakote 500mg bid for mood stabilizaton Risperdal Consta Will be considered When necessary medications will be given collateral information will be obtained dialysis social worker evaluation Medical team evaluation We'll monitor closely when necessary medications for insomnia Estimated Date of D/C: 11/16/16 (we'll monitor closely)
[2016-11-12] MEDS: Divalproex 500 mg DR(BID formulation) PO SCH (21:28)
[2016-11-13] MEDS: Divalproex 500 mg DR(BID formulation) PO SCH ×2 (09:29→21:58)
--- NOTE | 2016-11-13 15:48 | PCM.PYCHPN ---
Psychiatric Progress Note - Psychiatric Progress Note Patient seen today, length of contact: 30 minutes Patient Chief Complaint: "I needed to be discharged, I have a secret mission" Problems Identified/Issues Discussed: Suicide/ homicide prevention, past psychiatric h/o, current psychiatric symptoms , medical problems, risk/benefits and alternatives of medications, medications compliance, coping strategies, substance abuse h/o, relapse prevention, importance of follow up with psychiatrist and therapist, discharge plan. Medical Problems: patient reported being healthy, patient was seen by medical team, consultation appreciated Diagnostic Results: 11/08/16 20:00 11/08/16 20:00 Lab Results 11/10/16 08:30: Iron 160, TIBC 314, % Saturation 51 11/10/16 08:30: Free T4 1.23, TSH 3rd Generation 0.98 11/10/16 08:30: Ferritin Pending, Triglycerides 101, Cholesterol 157, LDL Cholesterol Direct 98, HDL Cholesterol 39, Vitamin B12 Pending, Folate Pending 11/08/16 20:00: Alcohol, Quantitative < 10 11/08/16 20:00: Salicylates < 1 L, Acetaminophen < 10.0 L 11/08/16 20:00: Sodium 138, Potassium 4.0, Chloride 101, Carbon Dioxide 27, Anion Gap 14, BUN 14, Creatinine 1.0, Est GFR ( Amer) > 60, Est GFR (Non- Af Amer) > 60, Random Glucose 87, Calcium 9.6, Total Bilirubin 0.6, AST 28, ALT 35, Alkaline Phosphatase 66, Total Protein 8.0, Albumin 4.5, Globulin 3.5, Albumin/Globulin Ratio 1.3 11/08/16 20:00: WBC 8.9 D, RBC 5.02, Hgb 14.7, Hct 44.3, MCV 88.2, MCH 29.3, MCHC 33.2, RDW 12.9, Plt Count 182, MPV 11.2 H, Gran % 55.8, Lymph % (Auto) 35.7 H, [place] % (Auto) 8.0 H, Eos % (Auto) 0.2 L, Baso % (Auto) 0.3, Gran # 4.94 , Lymph # 3.2, [place] # 0.7 H, Eos # 0.0, Baso # 0.03 11/08/16 19:45: Urine Opiates Screen Negative, Urine Methadone Screen Negative, Ur Barbiturates Screen Negative, Ur Phencyclidine Scrn Negative, Ur Amphetamines Screen Negative, U Benzodiazepines Scrn Negative, U Oth Cocaine Metabols Negative, U Cannabinoids Screen Positive H 11/08/16 19:45: Urine Color Yellow, Urine Appearance Clear, Urine pH 6.0, Ur Specific [place] 1.025, Urine Protein Trace H, Urine Glucose (UA) Negative, Urine Ketones Negative, Urine Blood Trace-intact H, Urine Nitrate Negative, Urine Bilirubin Negative, Urine Urobilinogen 1.0 H, Ur Leukocyte Esterase Negative, Urine RBC 1 - 3, Urine WBC 0 - 2, Ur Epithelial Cells 0 - 2 Vital Signs Temp Pulse Pulse Resp BP Pulse Ox 11/10/16 07:33 97.5 F L 86 20 135/80 11/09/16 16:18 66 113/66 11/09/16 08:20 62 20 11/09/16 07:44 97.9 F 82 17 112/54 L 97 11/09/16 06:05 61 18 119/72 98 11/09/16 02:37 98.7 F 66 18 120/77 98 11/08/16 20:55 98.8 F 11/08/16 20:18 74 20 139/71 100 Temp Pulse Resp BP Pulse Ox 97.5 F L 86 20 131/80 97 11/11/16 06:30 11/11/16 06:30 11/11/16 06:30 11/11/16 06:30 11/09/16 07:44 DSM 5 Symptoms Update: shortly patient is 26 years old -Finn[place] male, long and debilitating history of schizophrenia spectrum disorder, more than 15 hospitalizations into the psychiatric inpatient unit, history of noncompliance with the medications, patient currently under a [facility] outpatient program care, patient was admitted for evaluation of disorganized and psychotic behavior, patient was noncompliant with the medications, needs further evaluation and stabilization, medications what resumption. Patient was seen in his room, pt still disorganized, paranoid, has impression that he is on secret mission from government. pt is grandiose. pt has a word salad, no meaningful conversation possible, pt asked to be on haldol yesterday. later on pt submitted 48hr notice, will consider screening. over weekend pt wrote the following letter: "documented proof, got being kissed by men. Creates the unbelievable disturbance in the female ovary giving off and not so last sent order or what jewish for black man? Is one of your daughters being bad and nasty refresher course on through to never live a life, at the video named BONITA and man can start. Since there were easily video being documented. With sound on and fell alert device can cells all frequent knee from other device to make it known. This one famine this no and your [place] your don't fight the side of God/ daughter BBM?" . As per nursing report patient is compliant with her medications, no side effects observed or reported, aims 0, no EPS. Impression: Schizophrenia paranoid type Cannabis abuse Medication Change: Yes (depakote started, irsperdal increased) Medical Record Reviewed: Yes Consults ordered or reviewed: medical consult appreciated Mental Status Examination - Cognitive Function Orientation: Person, Place, Situation, Time Memory: Intact Attention: Poor Concentration: Poor Association: Loose Fund of Knowledge: Poor - Mood Mood: Depressed, Anxious - Affect Affect: Flat - Formal Thought Process Formal Thought Process: Hallucinations, Delusions, Paranoia, Loosening of associations, Flight of ideas, Circumstantial, Perservation - Suicidal Ideation Suicidal Ideation: No - Homicidal Ideation Homicidal Ideation: No Goal/Treatment Plan - Goal/Treatment Plan Need for Continued Stay: Remain at risks for inpatient hospitalization, Severe depression anxiety, Discharge may exacerbated symptoms, Severe functional impairment Progress Toward Problem(s) and Goals/Treatment Plan: milieu, structure, supportive therapy Risperdal was discontinued Haldol was started 5 mg 3 times a day yesterday, will be increased to 10 mg twice a day to day for psychotic symptoms Cogentin 0.5 mg twice a day for EPS symptoms depakote 500mg bid for mood stabilizaton Haldol Decanoate will be considered When necessary medications will be given collateral information will be obtained social service agency director evaluation Medical team evaluation We'll monitor closely when necessary medications for insomnia patient submitted 48 hour notice we'll consider to call [facility] evaluation Estimated Date of D/C: 11/16/16 (we'll monitor closely)
[2016-11-14] MEDS: Divalproex 500 mg DR(BID formulation) PO SCH (10:01)
--- NOTE | 2016-11-14 16:18 | PCM.PYCHPN ---
Psychiatric Progress Note - Psychiatric Progress Note Patient seen today, length of contact: 30 minutes Patient Chief Complaint: "I have a job, you take advantage of my available answers." Problems Identified/Issues Discussed: Suicide/ homicide prevention, past psychiatric h/o, current psychiatric symptoms , medical problems, risk/benefits and alternatives of medications, medications compliance, coping strategies, substance abuse h/o, relapse prevention, importance of follow up with psychiatrist and therapist, discharge plan. Medical Problems: patient reported being healthy, patient was seen by medical team, consultation appreciated Diagnostic Results: 11/08/16 20:00 11/08/16 20:00 Lab Results 11/10/16 08:30: Iron 160, TIBC 314, % Saturation 51 11/10/16 08:30: Free T4 1.23, TSH 3rd Generation 0.98 11/10/16 08:30: Ferritin Pending, Triglycerides 101, Cholesterol 157, LDL Cholesterol Direct 98, HDL Cholesterol 39, Vitamin B12 Pending, Folate Pending 11/08/16 20:00: Alcohol, Quantitative < 10 11/08/16 20:00: Salicylates < 1 L, Acetaminophen < 10.0 L 11/08/16 20:00: Sodium 138, Potassium 4.0, Chloride 101, Carbon Dioxide 27, Anion Gap 14, BUN 14, Creatinine 1.0, Est GFR ( Amer) > 60, Est GFR (Non- Af Amer) > 60, Random Glucose 87, Calcium 9.6, Total Bilirubin 0.6, AST 28, ALT 35, Alkaline Phosphatase 66, Total Protein 8.0, Albumin 4.5, Globulin 3.5, Albumin/Globulin Ratio 1.3 11/08/16 20:00: WBC 8.9 D, RBC 5.02, Hgb 14.7, Hct 44.3, MCV 88.2, MCH 29.3, MCHC 33.2, RDW 12.9, Plt Count 182, MPV 11.2 H, Gran % 55.8, Lymph % (Auto) 35.7 H, [place] % (Auto) 8.0 H, Eos % (Auto) 0.2 L, Baso % (Auto) 0.3, Gran # 4.94 , Lymph # 3.2, [place] # 0.7 H, Eos # 0.0, Baso # 0.03 11/08/16 19:45: Urine Opiates Screen Negative, Urine Methadone Screen Negative, Ur Barbiturates Screen Negative, Ur Phencyclidine Scrn Negative, Ur Amphetamines Screen Negative, U Benzodiazepines Scrn Negative, U Oth Cocaine Metabols Negative, U Cannabinoids Screen Positive H 11/08/16 19:45: Urine Color Yellow, Urine Appearance Clear, Urine pH 6.0, Ur Specific [place] 1.025, Urine Protein Trace H, Urine Glucose (UA) Negative, Urine Ketones Negative, Urine Blood Trace-intact H, Urine Nitrate Negative, Urine Bilirubin Negative, Urine Urobilinogen 1.0 H, Ur Leukocyte Esterase Negative, Urine RBC 1 - 3, Urine WBC 0 - 2, Ur Epithelial Cells 0 - 2 Vital Signs Temp Pulse Pulse Resp BP Pulse Ox 11/10/16 07:33 97.5 F L 86 20 135/80 11/09/16 16:18 66 113/66 11/09/16 08:20 62 20 11/09/16 07:44 97.9 F 82 17 112/54 L 97 11/09/16 06:05 61 18 119/72 98 11/09/16 02:37 98.7 F 66 18 120/77 98 11/08/16 20:55 98.8 F 11/08/16 20:18 74 20 139/71 100 Temp Pulse Resp BP Pulse Ox 97.5 F L 86 20 131/80 97 11/11/16 06:30 11/11/16 06:30 11/11/16 06:30 11/11/16 06:30 11/09/16 07:44 Temp Pulse Resp BP Pulse Ox 98.1 F 81 20 94/52 L 97 11/14/16 07:27 11/14/16 16:09 11/14/16 07:27 11/14/16 16:09 11/09/16 07:44 DSM 5 Symptoms Update: shortly patient is 26 years old -[place] male, long and debilitating history of schizophrenia spectrum disorder, more than 15 hospitalizations into the psychiatric inpatient unit, history of noncompliance with the medications, patient currently under a outpatient program care, patient was admitted for evaluation of disorganized and psychotic behavior, patient was noncompliant with the medications, needs further evaluation and stabilization, medications what resumption. Patient was seen at the tx team meeting, pt still disorganized, paranoid, there are no connection among his statement, pt was talking about the secret government job, then that some order is waiting for him in his father apartment , then pt said he does not trust anybody, has impression that he is on secret mission from government. "I have a job, you take advantage of my available answers." meds increased over weekend pt wrote the following letter: "documented proof, got being kissed by men. Creates the unbelievable disturbance in the female ovary giving off and not so last sent order or what evangelical for black man? Is one of your daughters being bad and nasty refresher course on through to never live a life, at the video named BONITA and man can start. Since there were easily video being documented. With sound on and fell alert device can cells all frequent knee from other device to make it known. This one famine this no and your [place] your don't fight the side of God/ daughter BBM?" . As per nursing report patient is compliant with her medications, no side effects observed or reported, aims 0, no EPS. Impression: Schizophrenia paranoid type Cannabis abuse Medication Change: Yes (haldol increased, depakote increased) Medical Record Reviewed: Yes Consults ordered or reviewed: medical consult appreciated Mental Status Examination - Cognitive Function Orientation: Person, Place, Situation, Time Memory: Intact Attention: Poor Concentration: Poor Association: Loose Fund of Knowledge: Poor - Mood Mood: Depressed, Anxious - Affect Affect: Flat - Formal Thought Process Formal Thought Process: Hallucinations, Delusions, Paranoia, Loosening of associations, Flight of ideas, Circumstantial, Perservation - Suicidal Ideation Suicidal Ideation: No - Homicidal Ideation Homicidal Ideation: No Goal/Treatment Plan - Goal/Treatment Plan Need for Continued Stay: Remain at risks for inpatient hospitalization, Severe depression anxiety, Discharge may exacerbated symptoms, Severe functional impairment Progress Toward Problem(s) and Goals/Treatment Plan: milieu, structure, supportive therapy Risperdal was discontinued Haldol 10mg po tid for psychotic symptoms Cogentin 2mg amhs a day for EPS symptoms depakote 500mg am and 750hs for mood stabilizaton Haldol Decanoate will be considered When necessary medications will be given collateral information will be obtained 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
[2016-11-14] MEDS: Divalproex 250 mg DR (BID formulation) PO SCH (22:19)
[2016-11-15] MEDS: Divalproex 500 mg DR(BID formulation) PO SCH (09:42)
--- NOTE | 2016-11-15 15:32 | PCM.PYCHPN ---
Psychiatric Progress Note - Psychiatric Progress Note Patient seen today, length of contact: 30 minutes Patient Chief Complaint: "I am at the hunger strike" Problems Identified/Issues Discussed: Suicide/ homicide prevention, past psychiatric h/o, current psychiatric symptoms , medical problems, risk/benefits and alternatives of medications, medications compliance, coping strategies, substance abuse h/o, relapse prevention, importance of follow up with psychiatrist and therapist, discharge plan. Medical Problems: patient reported being healthy, patient was seen by medical team, consultation appreciated Diagnostic Results: 11/08/16 20:00 11/08/16 20:00 Lab Results 11/10/16 08:30: Iron 160, TIBC 314, % Saturation 51 11/10/16 08:30: Free T4 1.23, TSH 3rd Generation 0.98 11/10/16 08:30: Ferritin Pending, Triglycerides 101, Cholesterol 157, LDL Cholesterol Direct 98, HDL Cholesterol 39, Vitamin B12 Pending, Folate Pending 11/08/16 20:00: Alcohol, Quantitative < 10 11/08/16 20:00: Salicylates < 1 L, Acetaminophen < 10.0 L 11/08/16 20:00: Sodium 138, Potassium 4.0, Chloride 101, Carbon Dioxide 27, Anion Gap 14, BUN 14, Creatinine 1.0, Est GFR ( Amer) > 60, Est GFR (Non- Af Amer) > 60, Random Glucose 87, Calcium 9.6, Total Bilirubin 0.6, AST 28, ALT 35, Alkaline Phosphatase 66, Total Protein 8.0, Albumin 4.5, Globulin 3.5, Albumin/Globulin Ratio 1.3 11/08/16 20:00: WBC 8.9 D, RBC 5.02, Hgb 14.7, Hct 44.3, MCV 88.2, MCH 29.3, MCHC 33.2, RDW 12.9, Plt Count 182, MPV 11.2 H, Gran % 55.8, Lymph % (Auto) 35.7 H, [place] % (Auto) 8.0 H, Eos % (Auto) 0.2 L, Baso % (Auto) 0.3, Gran # 4.94 , Lymph # 3.2, [place] # 0.7 H, Eos # 0.0, Baso # 0.03 11/08/16 19:45: Urine Opiates Screen Negative, Urine Methadone Screen Negative, Ur Barbiturates Screen Negative, Ur Phencyclidine Scrn Negative, Ur Amphetamines Screen Negative, U Benzodiazepines Scrn Negative, U Oth Cocaine Metabols Negative, U Cannabinoids Screen Positive H 11/08/16 19:45: Urine Color Yellow, Urine Appearance Clear, Urine pH 6.0, Ur Specific [place] 1.025, Urine Protein Trace H, Urine Glucose (UA) Negative, Urine Ketones Negative, Urine Blood Trace-intact H, Urine Nitrate Negative, Urine Bilirubin Negative, Urine Urobilinogen 1.0 H, Ur Leukocyte Esterase Negative, Urine RBC 1 - 3, Urine WBC 0 - 2, Ur Epithelial Cells 0 - 2 Vital Signs Temp Pulse Pulse Resp BP Pulse Ox 11/10/16 07:33 97.5 F L 86 20 135/80 11/09/16 16:18 66 113/66 11/09/16 08:20 62 20 11/09/16 07:44 97.9 F 82 17 112/54 L 97 11/09/16 06:05 61 18 119/72 98 11/09/16 02:37 98.7 F 66 18 120/77 98 11/08/16 20:55 98.8 F 11/08/16 20:18 74 20 139/71 100 Temp Pulse Resp BP Pulse Ox 97.5 F L 86 20 131/80 97 11/11/16 06:30 11/11/16 06:30 11/11/16 06:30 11/11/16 06:30 11/09/16 07:44 Temp Pulse Resp BP Pulse Ox 98.1 F 81 20 94/52 L 97 11/14/16 07:27 11/14/16 16:09 11/14/16 07:27 11/14/16 16:09 11/09/16 07:44 Temp Pulse Resp BP Pulse Ox 97.8 F 81 20 96/60 L 97 11/15/16 07:41 11/15/16 07:41 11/15/16 07:41 11/15/16 07:41 11/09/16 07:44 DSM 5 Symptoms Update: shortly patient is 26 years old -[place] male, long and debilitating history of schizophrenia spectrum disorder, more than 15 hospitalizations into the psychiatric inpatient unit, history of noncompliance with the medications, patient currently under a [facility] outpatient program care, patient was admitted for evaluation of disorganized and psychotic behavior, patient was noncompliant with the medications, needs further evaluation and stabilization, medications what resumption. Patient was seen at am in the room, pt said that he is in a "hunger strike", as per report pt ate 100%of his breakfast and lunch. pt still disorganized, paranoid, there are no connection among his statement, pt was talking about the secret government job, then that some order is waiting for him in his father apartment, then pt said he does not trust anybody, has impression that he is on secret mission from [employer]. "I have a job, you take advantage of my available answers." meds increased yesterday. over pt wrote the following letter: "documented proof, got being kissed by men. Creates the unbelievable disturbance in the female ovary giving off and not so last sent order or what roman catholic for black man? Is one of your daughters being bad and nasty refresher course on through to never live a life, at the video named BONITA and man can start. Since there were easily video being documented. With sound on and fell alert device can cells all frequent knee from other device to make it known. This one famine this no and your [place] your don't fight the side of God/ daughter BBM?" . As per nursing report patient is compliant with her medications, no side effects observed or reported, aims 0, no EPS. Impression: Schizophrenia paranoid type Cannabis abuse Medication Change: Yes (haldol increased, depakote increased) Medical Record Reviewed: Yes Consults ordered or reviewed: medical consult appreciated Mental Status Examination - Cognitive Function Orientation: Person, Place, Situation, Time Memory: Intact Attention: Poor Concentration: Poor Association: Loose Fund of Knowledge: Poor - Mood Mood: Depressed, Anxious - Affect Affect: Flat - Formal Thought Process Formal Thought Process: Hallucinations, Delusions, Paranoia, Loosening of associations, Flight of ideas, Circumstantial, Perservation - Suicidal Ideation Suicidal Ideation: No - Homicidal Ideation Homicidal Ideation: No Goal/Treatment Plan - Goal/Treatment Plan Need for Continued Stay: Remain at risks for inpatient hospitalization, Severe depression anxiety, Discharge may exacerbated symptoms, Severe functional impairment Progress Toward Problem(s) and Goals/Treatment Plan: milieu, structure, supportive therapy Risperdal was discontinued Haldol 10mg po tid for psychotic symptoms Cogentin 2mg amhs a day for EPS symptoms depakote 500mg am and 750hs for mood stabilizaton Haldol Decanoate will be considered When necessary medications will be given collateral information will be obtained social director evaluation Medical team evaluation We'll monitor closely when necessary medications for insomnia patient rescinded his 48hr notice Estimated Date of D/C: 11/16/16 (we'll monitor closely)
[2016-11-15] MEDS: Divalproex 250 mg DR (BID formulation) PO SCH (22:10)
[2016-11-16] MEDS: Divalproex 500 mg DR(BID formulation) PO SCH (07:57)
--- NOTE | 2016-11-16 17:39 | PCM.PYCHPN ---
Psychiatric Progress Note - Psychiatric Progress Note Patient seen today, length of contact: 30 minutes Patient Chief Complaint: "I have a secret mission" Problems Identified/Issues Discussed: Suicide/ homicide prevention, past psychiatric h/o, current psychiatric symptoms , medical problems, risk/benefits and alternatives of medications, medications compliance, coping strategies, substance abuse h/o, relapse prevention, importance of follow up with psychiatrist and therapist, discharge plan. Medical Problems: patient reported being healthy, patient was seen by medical team, consultation appreciated Diagnostic Results: 11/08/16 20:00 11/08/16 20:00 Lab Results 11/10/16 08:30: Iron 160, TIBC 314, % Saturation 51 11/10/16 08:30: Free T4 1.23, TSH 3rd Generation 0.98 11/10/16 08:30: Ferritin Pending, Triglycerides 101, Cholesterol 157, LDL Cholesterol Direct 98, HDL Cholesterol 39, Vitamin B12 Pending, Folate Pending 11/08/16 20:00: Alcohol, Quantitative < 10 11/08/16 20:00: Salicylates < 1 L, Acetaminophen < 10.0 L 11/08/16 20:00: Sodium 138, Potassium 4.0, Chloride 101, Carbon Dioxide 27, Anion Gap 14, BUN 14, Creatinine 1.0, Est GFR ( Amer) > 60, Est GFR (Non- Af Amer) > 60, Random Glucose 87, Calcium 9.6, Total Bilirubin 0.6, AST 28, ALT 35, Alkaline Phosphatase 66, Total Protein 8.0, Albumin 4.5, Globulin 3.5, Albumin/Globulin Ratio 1.3 11/08/16 20:00: WBC 8.9 D, RBC 5.02, Hgb 14.7, Hct 44.3, MCV 88.2, MCH 29.3, MCHC 33.2, RDW 12.9, Plt Count 182, MPV 11.2 H, Gran % 55.8, Lymph % (Auto) 35.7 H, [place] % (Auto) 8.0 H, Eos % (Auto) 0.2 L, Baso % (Auto) 0.3, Gran # 4.94 , Lymph # 3.2, [place] # 0.7 H, Eos # 0.0, Baso # 0.03 11/08/16 19:45: Urine Opiates Screen Negative, Urine Methadone Screen Negative, Ur Barbiturates Screen Negative, Ur Phencyclidine Scrn Negative, Ur Amphetamines Screen Negative, U Benzodiazepines Scrn Negative, U Oth Cocaine Metabols Negative, U Cannabinoids Screen Positive H 11/08/16 19:45: Urine Color Yellow, Urine Appearance Clear, Urine pH 6.0, Ur Specific [place] 1.025, Urine Protein Trace H, Urine Glucose (UA) Negative, Urine Ketones Negative, Urine Blood Trace-intact H, Urine Nitrate Negative, Urine Bilirubin Negative, Urine Urobilinogen 1.0 H, Ur Leukocyte Esterase Negative, Urine RBC 1 - 3, Urine WBC 0 - 2, Ur Epithelial Cells 0 - 2 Vital Signs Temp Pulse Pulse Resp BP Pulse Ox 11/10/16 07:33 97.5 F L 86 20 135/80 11/09/16 16:18 66 113/66 11/09/16 08:20 62 20 11/09/16 07:44 97.9 F 82 17 112/54 L 97 11/09/16 06:05 61 18 119/72 98 11/09/16 02:37 98.7 F 66 18 120/77 98 11/08/16 20:55 98.8 F 11/08/16 20:18 74 20 139/71 100 Temp Pulse Resp BP Pulse Ox 97.5 F L 86 20 131/80 97 11/11/16 06:30 11/11/16 06:30 11/11/16 06:30 11/11/16 06:30 11/09/16 07:44 Temp Pulse Resp BP Pulse Ox 98.1 F 81 20 94/52 L 97 11/14/16 07:27 11/14/16 16:09 11/14/16 07:27 11/14/16 16:09 11/09/16 07:44 Temp Pulse Resp BP Pulse Ox 97.8 F 81 20 96/60 L 97 11/15/16 07:41 11/15/16 07:41 11/15/16 07:41 11/15/16 07:41 11/09/16 07:44 Temp Pulse Resp BP Pulse Ox 97.6 F 72 20 93/53 L 97 11/16/16 07:46 11/16/16 07:46 11/16/16 07:46 11/16/16 07:46 11/09/16 07:44 DSM 5 Symptoms Update: shortly patient is 26 years old -[place] African male, long and debilitating history of schizophrenia spectrum disorder, more than 15 hospitalizations into the psychiatric inpatient unit, history of noncompliance with the medications, patient currently under a [facility] outpatient program care, patient was admitted for evaluation of disorganized and psychotic behavior, patient was noncompliant with the medications, needs further evaluation and stabilization, medications what resumption. yesterday pt said that he is on "hunger strike", as per report pt ate 100%of his breakfast and lunch and dinner. pt still disorganized, paranoid, but thoughts are better connected, still pt was making statements like he has secret mission to accomplish, pt also said that he is in the hospital because of the leg pain and it is improved and "I need to go". "I have a job, you take advantage of my available answers." pt keeps writing letters with the similar context: "documented proof, got being kissed by men. Creates the unbelievable disturbance in the female ovary giving off and not so last sent order or what presybeterian for black man? Is one of your daughters being bad and nasty refresher course on through to never live a life, at the video named [email or web address] and man can start. Since there were easily video being documented. With sound on and fell alert device can cells all frequent knee from other device to make it known. This one famine this no and your [place] your don't fight the side of God/ daughter BBM?" . As per nursing report patient is compliant with her medications, no side effects observed or reported, aims 0, no EPS. pt submitted 48hr notice, 11/16/16 at 4:38pm, will initiate screening. Impression: Schizophrenia paranoid type Cannabis abuse Medication Change: Yes (haldol increased, depakote increased yesterday) Medical Record Reviewed: Yes Consults ordered or reviewed: medical consult appreciated Mental Status Examination - Cognitive Function Orientation: Person, Place, Situation, Time Memory: Intact Attention: Poor (somewhat better) Concentration: Poor (somewhat better) Association: Loose Fund of Knowledge: Poor - Mood Mood: Depressed, Anxious - Affect Affect: Flat - Formal Thought Process Formal Thought Process: Hallucinations (some improvement), Delusions (some improvement), Paranoia, Loosening of associations, Circumstantial - Suicidal Ideation Suicidal Ideation: No - Homicidal Ideation Homicidal Ideation: No Goal/Treatment Plan - Goal/Treatment Plan Need for Continued Stay: Remain at risks for inpatient hospitalization, Severe depression anxiety, Discharge may exacerbated symptoms, Severe functional impairment Progress Toward Problem(s) and Goals/Treatment Plan: milieu, structure, supportive therapy Haldol 10mg po tid for psychotic symptoms Cogentin 2mg amhs a day for EPS symptoms depakote 500mg am and 750hs for mood stabilizaton Haldol Decanoate will be considered When necessary medications will be given collateral information will be obtained sr. social media & mobile manager evaluation Medical team evaluation We'll monitor closely when necessary medications for insomnia pt submitted 48hr notice, 11/16/16 at 4:38pm, will initiate screening. Estimated Date of D/C: 11/16/16 (we'll monitor closely)
[2016-11-16] MEDS: Divalproex 250 mg DR (BID formulation) PO SCH (21:35)
--- NOTE | 2016-11-17 09:04 | PCM.PYCHPN ---
Psychiatric Progress Note - Psychiatric Progress Note Patient seen today, length of contact: 25 minutes Patient Chief Complaint: "better" Problems Identified/Issues Discussed: I reviewed assessment and recent notes. Patient was interviewed at bedside. He is generally calm and superficially cooperative. Affect is guarded and preoccupied. Patient denies any new issues, reported he is feeling better since admission. He denies hearing any voices however reports continued paranoia. Delusions were elicited during this meeting today however this provider cannot rule them out. Nursing notes indicate that patient has been attending and participating in groups. He is usually calm and quiet on the unit. There were no behavioral issues overnight. Diagnostic Results: Schizophrenia paranoid type Cannabis abuse Medication Change: No ( ) Medical Record Reviewed: Yes (reports, labs, vitals, notes) Mental Status Examination - Cognitive Function Orientation: Person, Place, Situation, Time Memory: Intact Attention: Poor (somewhat better) Concentration: Poor (somewhat better) Association: Loose Fund of Knowledge: Poor - Mood Mood: Depressed ("better"), Anxious - Affect Affect: Flat - Formal Thought Process Formal Thought Process: Hallucinations (denies this morning), Delusions (some improvement), Paranoia, Loosening of associations, Circumstantial - Suicidal Ideation Suicidal Ideation: No - Homicidal Ideation Homicidal Ideation: No Goal/Treatment Plan - Goal/Treatment Plan Need for Continued Stay: Remain at risks for inpatient hospitalization, Severe depression anxiety, Discharge may exacerbated symptoms, Severe functional impairment Progress Toward Problem(s) and Goals/Treatment Plan: * c/w current tx and plan * No new weekend labs * Vitals reviewed and noted below: Selected Entries 11/16/16 07:46 Temperature 97.6 F Pulse Rate 72 Respiratory 20 Rate Blood Pressure 93/53 L * OF NOTE: PATIENT SUBMITTED 48 HOUR NOTICE ON 11/16/16 AT 4:38 PM WHICH WAS SUBSEQUENTLY RETRACTED Estimated Date of D/C: 11/16/16 (we'll monitor closely)
[2016-11-17] MEDS: Divalproex 500 mg DR(BID formulation) PO SCH (09:43)
[2016-11-17] MEDS: Divalproex 250 mg DR (BID formulation) PO SCH (22:07)
[2016-11-18 07:54] VITALS: TEMP 97.6
--- NOTE | 2016-11-18 08:52 | PCM.PYCHPN ---
Psychiatric Progress Note - Psychiatric Progress Note Patient seen today, length of contact: 25 minutes Patient Chief Complaint: "better" Problems Identified/Issues Discussed: I reviewed recent notes and patient was interviewed at bedside. He is generally calm and superficially cooperative. Affect remains guarded but he has more communicative and brighter this morning.. Patient denies any new issues and reported he is feeling better since admission. When asked about hallucinations, he responds "maybe". Patient eventually admits that hallucinations have been improving since admission. Disorganization persists however this is also improving. Patients thought process can be redirected so that responses are more relevant and focused. Overt delusions were not elicited during both interviews this weekend. Nursing notes indicate that patient has been attending and participating in groups. Appears disorganized. He is usually calm and quiet on the unit. There were no behavioral issues over the weekend . Diagnostic Results: Schizophrenia paranoid type Cannabis abuse Medication Change: No ( ) Medical Record Reviewed: Yes (reports, labs, vitals, notes) Mental Status Examination - Cognitive Function Orientation: Person, Place, Situation, Time Memory: Intact Attention: Poor (somewhat better) Concentration: Poor (somewhat better) Association: Loose Fund of Knowledge: Poor - Mood Mood: Depressed ("better"), Anxious - Affect Affect: Flat - Formal Thought Process Formal Thought Process: Hallucinations (denies this morning), Delusions (some improvement), Paranoia, Loosening of associations, Circumstantial - Suicidal Ideation Suicidal Ideation: No - Homicidal Ideation Homicidal Ideation: No Goal/Treatment Plan - Goal/Treatment Plan Need for Continued Stay: Remain at risks for inpatient hospitalization, Severe depression anxiety, Discharge may exacerbated symptoms, Severe functional impairment Progress Toward Problem(s) and Goals/Treatment Plan: * c/w current tx and plan * Reviewed option of Haldol Decanoate today, patient still seems reluctant but appears more open to this intervention * No new weekend labs * Vitals reviewed and noted below: Selected Entries 11/17/16 11/17/16 11/18/16 06:45 14:00 07:54 Temperature 97.9 F 97.6 F Pulse Rate 74 76 62 Respiratory 20 20 Rate Blood Pressure 96/60 L 122/66 98/60 L * OF NOTE: PATIENT SUBMITTED 48 HOUR NOTICE ON 11/16/16 AT 4:38 PM WHICH WAS SUBSEQUENTLY RETRACTED Estimated Date of D/C: 11/16/16 (we'll monitor closely)
[2016-11-18] MEDS: Divalproex 500 mg DR(BID formulation) PO SCH (09:22)
[2016-11-18] MEDS: Divalproex 250 mg DR (BID formulation) PO SCH (21:31)
[2016-11-19 07:56] VITALS: BP 110/67; PULSE 61
[2016-11-19] MEDS: Divalproex 500 mg DR(BID formulation) PO SCH (08:36)
--- NOTE | 2016-11-19 14:36 | PCM.PYCHDC ---
Mental Status Examination - Mental Status Examination Orientation: Person, Place, Situation, Time Memory: Intact Mood: Neutral Affect: Broad (at times mood incongruent) Speech: Appropriate (mildly disorganized) Attention: Poor (much better) Concentration: Poor (but much better) Association: Loose (chronic) Fund of Knowledge: Poor (chronic) Formal Thought Process: Delusions (of grandour), Other (Patient still has disorganized thought processes but with much improvement) Description of patient's judgement and insight: Pt has limited insight into mental and medical illness (pt does not feel he needs to continue medications after discharge), but was compliant with medications while hospitalized, was compliant with unit rules and regulations, pt was going to groups, was calm, superficially cooperative, socially appropriate, no behavioral incidents, no agitation, no aggression. Psychotic Thoughts and Behaviors: patient still has thought process to be disorganized, patient has delusions of grandeur that she has [employer] job to do, but it seems to be chronic. Suicidal Ideation: No Current Homicidal Ideation?: No Plan: pt adamantly denied thoughts of harming self or others denied intent or plan. Discharge Summary - Discharge Note Reason for Hospitalization: disorganized thoughts, disorganized behavior Psychiatric History (includes Medical, Family, Personal Hx): history of mental illness Laboratory Data: 11/08/16 20:00 11/08/16 20:00 Lab Results 11/10/16 08:30: Iron 160, TIBC 314, % Saturation 51 11/10/16 08:30: 25-OH Vitamin D Total 18.8 L 11/10/16 08:30: RPR Nonreactive 11/10/16 08:30: Free T4 1.23, TSH 3rd Generation 0.98 11/10/16 08:30: HIV 1&2 Ag/Ab, 4th Gen Nonreactive 11/10/16 08:30: Hepatitis A IgM Ab Negative, Hep Bs Antigen Negative, Hep B Core IgM Ab Negative, Hepatitis C Antibody Negative 11/10/16 08:30: Ferritin 91.2, Triglycerides 101, Cholesterol 157, LDL Cholesterol Direct 98, HDL Cholesterol 39, Vitamin B12 428, Folate 12.7 11/08/16 20:00: Alcohol, Quantitative < 10 11/08/16 20:00: Salicylates < 1 L, Acetaminophen < 10.0 L 11/08/16 20:00: Sodium 138, Potassium 4.0, Chloride 101, Carbon Dioxide 27, Anion Gap 14, BUN 14, Creatinine 1.0, Est GFR ( Amer) > 60, Est GFR (Non- Af Amer) > 60, Random Glucose 87, Calcium 9.6, Total Bilirubin 0.6, AST 28, ALT 35, Alkaline Phosphatase 66, Total Protein 8.0, Albumin 4.5, Globulin 3.5, Albumin/Globulin Ratio 1.3 11/08/16 20:00: WBC 8.9 D, RBC 5.02, Hgb 14.7, Hct 44.3, MCV 88.2, MCH 29.3, MCHC 33.2, RDW 12.9, Plt Count 182, MPV 11.2 H, Gran % 55.8, Lymph % (Auto) 35.7 H, [place] % (Auto) 8.0 H, Eos % (Auto) 0.2 L, Baso % (Auto) 0.3, Gran # 4.94 , Lymph # 3.2, [place] # 0.7 H, Eos # 0.0, Baso # 0.03 11/08/16 19:45: Urine Opiates Screen Negative, Urine Methadone Screen Negative, Ur Barbiturates Screen Negative, Ur Phencyclidine Scrn Negative, Ur Amphetamines Screen Negative, U Benzodiazepines Scrn Negative, U Oth Cocaine Metabols Negative, U Cannabinoids Screen Positive H 11/08/16 19:45: Urine Color Yellow, Urine Appearance Clear, Urine pH 6.0, Ur Specific [place] 1.025, Urine Protein Trace H, Urine Glucose (UA) Negative, Urine Ketones Negative, Urine Blood Trace-intact H, Urine Nitrate Negative, Urine Bilirubin Negative, Urine Urobilinogen 1.0 H, Ur Leukocyte Esterase Negative, Urine RBC 1 - 3, Urine WBC 0 - 2, Ur Epithelial Cells 0 - 2 Vital Signs Temp Pulse Pulse Resp BP Pulse Ox 11/19/16 07:55 97.6 F 61 20 110/67 11/18/16 14:00 73 106/68 11/18/16 07:54 97.6 F 62 20 98/60 L 11/17/16 14:00 76 122/66 11/17/16 06:45 97.9 F 74 20 96/60 L 11/16/16 07:46 97.6 F 72 20 93/53 L 11/15/16 16:10 82 134/73 11/15/16 07:41 97.8 F 81 20 96/60 L 11/14/16 16:09 81 94/52 L 11/14/16 07:27 98.1 F 76 20 113/65 11/13/16 16:00 94 H 118/69 11/13/16 07:15 97.9 F 79 20 107/65 11/12/16 15:54 84 116/67 11/11/16 16:18 80 126/71 11/11/16 06:30 97.5 F L 86 20 131/80 11/10/16 16:00 84 129/75 11/10/16 07:33 97.5 F L 86 20 135/80 11/09/16 16:18 66 113/66 11/09/16 08:20 62 20 11/09/16 07:44 97.9 F 82 17 112/54 L 97 11/09/16 06:05 61 18 119/72 98 11/09/16 02:37 98.7 F 66 18 120/77 98 11/08/16 20:55 98.8 F 11/08/16 20:18 74 20 139/71 100 Consultations:: List each consultation separately and include: 1. Reason for request. 2. Findings. 3. Follow-up Consultations: medical consult appreciated Summary of Hospital Course include:: 1. Description of specific treatment plan utilized for patients during their course of treatmen. 2. Summarize the time- course for resolution of acute symptoms and/or regressed behaviors. 3. Describe issues identified and worked on during hospitalization. 4. Describe medication utilized. 5. Describe medical problems identified and treated. 6. Reassessment of suicide risk Summary of Hospital Course: shortly patient is 26 years old -[place] male, long and debilitating history of schizophrenia spectrum disorder, more than 15 hospitalizations into the psychiatric inpatient unit, history of noncompliance with the medications, patient currently under a [facility] outpatient program care, patient was admitted for evaluation of disorganized and psychotic behavior, patient was noncompliant with the medications, needs further evaluation and stabilization, medications what resumption. initially pt was seen at the treatment team meeting, patient presented to have acceptable personal hygiene, patient presented to be completely disorganized, thought process was tangential and circumstantial, at times patient answers weren't not related to the question being asked. Fear ADLs. For example patient said that "my mother has allergic reaction towards me, she came back from work, I wanted to talk to her, but she has allergy on me", patient said that his mother should be appreciated towards him because "I was the one who provided job for her", patient said that also he works, but doesn't want to disclose information about his job position. When patient was asked the reason why he doesn't want to talk about this patient said "it is a secret, I am at the [employer],I am on due to for the [employer] right now". pt also was found to be grandiose, said that "my mother wants to destroy my foundation" , when was asked what does he mean by that, pt said "me and my brother are very good people we have friends, she does not have friends, my father had allergic reaction towards my mother, now he is not at the picture, I smoke two packs a day it keeps me mellow, I wanted to drive [employer], I am a giving person...." pt was going and going. As per PES pt was given cup iwth the water in ED, pt poured the water and ice on his head and leaving the cup on his head saying that he was wearing a birthday hat and it was his birthday. pt said that he was on invega before and now he wants to be on injectable form of medication. Unfortunately intake is nonformulary in this hospital, we'll resume Risperdal. Patient was in agreement with that plan. Patient reported that he feels upset, denied any thoughts of killing himself. As per previous history patient has history of suicidal attempts, patient reported he had 4 suicidal attempts, when was asked when was the last one patient said "at age of 27" when this marine underwriter asked patient how does physical possible because patient is 26 years old patient did not have any explanation. Medical history: Patient reported being healthy patient denied using drugs denied drinking alcohol Family history: Unknown Patient's pharmacy was called Risperdal 2 mg by mouth at the nighttime filled in June [address] [place] westbrook [facility]. Vital Signs Temp Pulse Resp BP Pulse Ox 11/09/16 07:44 97.9 F 82 17 112/54 L 97 11/09/16 06:05 61 18 119/72 98 11/09/16 02:37 98.7 F 66 18 120/77 98 11/08/16 20:55 98.8 F 11/08/16 20:18 74 20 139/71 100 11/08/16 20:00 11/08/16 20:00 Lab Results 11/08/16 20:00: Alcohol, Quantitative < 10 11/08/16 20:00: Salicylates < 1 L, Acetaminophen < 10.0 L 11/08/16 20:00: Sodium 138, Potassium 4.0, Chloride 101, Carbon Dioxide 27, Anion Gap 14, BUN 14, Creatinine 1.0, Est GFR ( Amer) > 60, Est GFR (Non- Af Amer) > 60, Random Glucose 87, Calcium 9.6, Total Bilirubin 0.6, AST 28, ALT 35, Alkaline Phosphatase 66, Total Protein 8.0, Albumin 4.5, Globulin 3.5, Albumin/Globulin Ratio 1.3 11/08/16 20:00: WBC 8.9 D, RBC 5.02, Hgb 14.7, Hct 44.3, MCV 88.2, MCH 29.3, MCHC 33.2, RDW 12.9, Plt Count 182, MPV 11.2 H, Gran % 55.8, Lymph % (Auto) 35.7 H, [place] % (Auto) 8.0 H, Eos % (Auto) 0.2 L, Baso % (Auto) 0.3, Gran # 4.94 , Lymph # 3.2, [place] # 0.7 H, Eos # 0.0, Baso # 0.03 11/08/16 19:45: Urine Opiates Screen Negative, Urine Methadone Screen Negative, Ur Barbiturates Screen Negative, Ur Phencyclidine Scrn Negative, Ur Amphetamines Screen Negative, U Benzodiazepines Scrn Negative, U Oth Cocaine Metabols Negative, U Cannabinoids Screen Positive H 11/08/16 19:45: Urine Color Yellow, Urine Appearance Clear, Urine pH 6.0, Ur Specific [place] 1.025, Urine Protein Trace H, Urine Glucose (UA) Negative, Urine Ketones Negative, Urine Blood Trace-intact H, Urine Nitrate Negative, Urine Bilirubin Negative, Urine Urobilinogen 1.0 H, Ur Leukocyte Esterase Negative, Urine RBC 1 - 3, Urine WBC 0 - 2, Ur Epithelial Cells 0 - 2 risperdal was started, patient did not want to continue Risperdal, patient asked to be swished to haloperidol, haloperidol was started together with Cogentin for possible EPS. Patient was stabilized on the following medications: Haldol 10mg po tid for psychotic symptoms Cogentin 2mg amhs a day for EPS symptoms depakote 500mg am and 750hs for mood stabilizaton patient tolerated medications well, no side effects observed or reported, initially patient wanted to be on injectable form of medications Haldol decanoate, but refused to take injection today. Patient was admitted 48 hour notice twice, each time rescinded it. today pt requested to be discharged, collaterals form pt's father last Saturday by SW, as per father pt was doing "better", pt's father wanted to pick pt up over the weekend, pt wants to move into his father home and father was in agreement with d/c plan. this marine underwriter still has some concerns about compliance with the medications (pt said that he does not need to take them to the SW, but during tx team meeting pt said "I will take my meds because I don't want to be admitted again" seems to be sarcastic), but this is patient right to take or not to take medications, this marine underwriter educated patient about relapse rate without medications, but patient said she doesn't feel that he needs to continue meds, still patient was provided with 2 weeks supply and refill of the medications, patient was educated about the risk benefits and alternatives of the medications, patient again requested to be discharged, patient still mildly disorganized in his thoughts, appeared to be chronic, at the same time no agitation, no aggression, total behavioral incidents., pt adamantly denied thoughts of harming self or others. At the time of the discharge pt denied been depressed, denied thoughts of harming self or others, denied psychotic symptoms, and pt does not appeared to be psychotic, denied been anxious, was considered to pose no threat to self or others, pt does not want to have follow up appt but SW was advised to provide pt with the follow up appt and give info about outpatient clinic in the area, it is patient responsibility to follow up with outpatient clinic, PMD as well as specialists (see SW note for more detailed information). In case pt will need to obtain results of studies pending at discharge pt was provided with contact information of Psychiatric Inpatient unit [phone] as well as Medical Record Department [phone]. Nicotine patch was offered Counseling about smoking and drug cessation provided pt was provided with prescriptions for two weeks and one refill for psychotropic meds and one week for medical meds (see medication reconciliation form) Pt was educated about safety plan in case of worsening of symptoms or in case of suicidal or homicidal ideation call 911 or go to the nearest ER, also was educated to take meds as prescribed and stay away from drugs, pt verbalized understanding. - Diagnosis (1) Schizophrenia Status: Chronic (2) Cannabis abuse Status: Acute - Final Diagnosis (DSM 5) Condition upon Discharge: STABLE Disposition: AGAINST MEDICAL ADVICE Follow-up Treatment Plan: At the time of the discharge pt denied been depressed, denied thoughts of harming self or others, denied psychotic symptoms, and pt does not appeared to be psychotic, denied been anxious, was considered to pose no threat to self or others, pt does not want to have follow up appt but SW was advised to provide pt with the follow up appt and give info about outpatient clinic in the area, it is patient responsibility to follow up with outpatient clinic, PMD as well as specialists (see SW note for more detailed information). In case pt will need to obtain results of studies pending at discharge pt was provided with contact information of Psychiatric Inpatient unit [phone] as well as Medical Record Department [phone]. Nicotine patch was offered Counseling about smoking and drug cessation provided pt was provided with prescriptions for two weeks and one refill for psychotropic meds and one week for medical meds (see medication reconciliation form) Pt was educated about safety plan in case of worsening of symptoms or in case of suicidal or homicidal ideation call 911 or go to the nearest ER, also was educated to take meds as prescribed and stay away from drugs, pt verbalized understanding. Prescriptions/Medication Reconciliation: Benztropine [Benztropine Mesylate] 2 mg PO AMHS #30 tab Divalproex [Depakote ER] 250 mg PO HS #14 ter Divalproex [Depakote ER] 500 mg PO AMHS #30 ter Haloperidol [Haldol] 10 mg PO TID #45 tab Nicotine 21 mg/24 hr [Nicoderm Cq] 1 patch TD DAILY #14 patch traZODone [Desyrel] 50 mg PO HS #14 tab - Smoking Cessation Smoking Cessation Medication prescribed: Yes - Antipsychotic Medications Pt discharged on 2 or more routine antipsychotic medications: No
== END 2016-11-19 13:54 | disposition left against medical advice (07) | DRG 430 ==
LOC: ED 18:23 → ERH 11-09 04:54 → PSYC 11-09 08:15
PROVIDERS: ADMIT Psychiatry & Neurology Psychiatry; ATTEND Psychiatry & Neurology Psychiatry
DX: F20.0 Paranoid schizophrenia (principal); F12.10 Cannabis abuse, uncomplicated; Z87.891 Personal history of nicotine dependence